=== PATIENT | male | born 1970 | race Caucasian/White ===

== ENCOUNTER → 2016-10-09 | Outpatient (CLI) | payer BC ==
[2016-10-09 07:28] LABS: HEMOGLOBIN 15.9 gm/dl (14.0-17.5); RED BLOOD COUNT 5.91 M/UL (4.20-5.50); WHITE BLOOD COUNT 6.6 K/UL (4.5-11.0)
[2016-10-09 07:39] LABS: BUN/CREATININE RATIO 15 (0-10)
== END ==
LOC: LAB 06:45
PROVIDERS: Family Medicine
DX: Z00.00 Encounter for general adult medical examination without abnormal findings (principal); E29.1 Testicular hypofunction; E78.5 Hyperlipidemia, unspecified; I10 Essential (primary) hypertension
CPT/HCPCS: 36415; 80048; 80061; 80076; 82607; 84402; 84403; 84443; 85025

== ENCOUNTER → 2016-10-22 | Outpatient (CLI) | payer BC ==
[2016-10-22 08:10] LABS: BUN/CREATININE RATIO 18 (0-10)
== END ==
LOC: LAB 07:25
PROVIDERS: Family Medicine
DX: R73.9 Hyperglycemia, unspecified (principal)
CPT/HCPCS: 36415; 80048; 83036

== ENCOUNTER 2020-06-16 08:10 | Day surgery (SDC) | payer OTHER ==
[~2020-06-16] VITALS: Ht 172.7 cm; Wt 142.9 kg
[2020-06-16] MEDS ORDERED: ATORVASTATIN CA10 MG PO (10:46)
[2020-06-16] MEDS ORDERED: AMLODIPINE BESY10 MG PO (10:46)
[2020-06-16] MEDS ORDERED: EFFEXOR XR 75 M75 MG PO (10:48)
[2020-06-16] MEDS ORDERED: OMEPRAZOLE20 MG PO (10:49)
[2020-06-16] MEDS ORDERED: QUINAPRIL-HCTZ1 EAC1 PO (10:50)
[2020-06-16] MEDS ORDERED: GLUCOPHAGE XR500 M1 PO (10:55)
[2020-06-16] MEDS ORDERED: TESTOSTERO200 MG/1 M IM (10:55)
[2020-06-16 11:24] LABS: HEMOGLOBIN 17.3 gm/dl (14.0-17.5); RED BLOOD COUNT 6.16 M/UL (4.20-5.50); WHITE BLOOD COUNT 10.9 K/UL (4.5-11.0)
[2020-06-16 11:49] LABS: BUN/CREATININE RATIO 18 (0-10)
[2020-06-16] MEDS ORDERED: IBUPROFEN200 MG PO ×2 (12:11→12:12)
[2020-06-16] MEDS ORDERED: VITAMIN C500 M4 PO (12:14)
[2020-06-16] MEDS ORDERED: MULTIVITAMINS1 EAC2 PO (12:14)
[2020-06-16] MEDS ORDERED: VITAMIN D3125 MCG PO (12:16)
[2020-06-16] MEDS ORDERED: HYDROCODONE-AC1 EAC1 PO (15:38)
== END 2020-06-16 12:02 | disposition home or self-care (01) ==
LOC: ER1 08:10 → OR 08:10 → CDU 09:57 → ER1 09:57 → EDSTATUS 21:46
PROVIDERS: Emergency Medicine; Orthopaedic Surgery
PROC: 0SSF0ZZ Reposition Right Ankle Joint, Open Approach (ICD-10-PCS; 2020-06-16)
PROC: 0QSJ04Z Reposition Right Fibula with Internal Fixation Device, Open Approach (ICD-10-PCS; principal; 2020-06-16 13:00)
DX: S82.61XA Displaced fracture of lateral malleolus of right fibula, initial encounter for closed fracture (principal); S93.431A Sprain of tibiofibular ligament of right ankle, initial encounter; S82.431A Displaced oblique fracture of shaft of right fibula, initial encounter for closed fracture; S82.51XA Displaced fracture of medial malleolus of right tibia, initial encounter for closed fracture; E78.5 Hyperlipidemia, unspecified; I10 Essential (primary) hypertension; Z20.822 Contact with and (suspected) exposure to COVID-19; W01.0XXA Fall on same level from slipping, tripping and stumbling without subsequent striking against object, initial encounter; X50.1XXA Overexertion from prolonged static or awkward postures, initial encounter; Y92.69 Other specified industrial and construction area as the place of occurrence of the external cause; Y99.0 Civilian activity done for income or pay
CPT/HCPCS: 29515; 36415; 71045; 73590; 73600; 73610; 73630; 76000; 80053; 82962; 85025; 90471; 90715; 93005; 96361; 96374; 96375; 99284; C1713; J0171; J1100; J2270; J2405; J2795; J7030; J7120; U0002

== ENCOUNTER → 2020-12-07 | Outpatient (CLI) | payer SELFPAY ==
[~2020-12-07] MED LIST: AMLODIPINE BESY10 MG PO; ATORVASTATIN CA10 MG PO; EFFEXOR XR 75 M75 MG PO; GLUCOPHAGE XR500 M1 PO; HYDROCODONE-AC1 EAC1 PO; IBUPROFEN200 MG PO; MULTIVITAMINS1 EAC2 PO; OMEPRAZOLE20 MG PO; QUINAPRIL-HCTZ1 EAC1 PO; TESTOSTERO200 MG/1 M IM; VITAMIN C500 M4 PO; VITAMIN D3125 MCG PO
[2020-12-07 10:50] LABS: HEMOGLOBIN 16.6 gm/dl (14.0-17.5); WHITE BLOOD COUNT 7.9 K/UL (4.5-11.0)
[2020-12-07 11:16] LABS: BUN/CREATININE RATIO 14 (0-10)
[2020-12-08 07:11] LABS: VITAMIN D, 25-HYDROXY 62.7 ng/mL (30.0-100.0)
[2020-12-11 15:11] LABS: TESTOSTERONE, SERUM 558 ng/dL (264-916)
== END ==
LOC: LAB 07:46
PROVIDERS: Family Medicine
DX: Z12.5 Encounter for screening for malignant neoplasm of prostate (principal); E11.9 Type 2 diabetes mellitus without complications; E29.1 Testicular hypofunction; E66.01 Morbid (severe) obesity due to excess calories; F32.9 Major depressive disorder, single episode, unspecified; I10 Essential (primary) hypertension; Z68.43 Body mass index [BMI] 50.0-59.9, adult
CPT/HCPCS: 80048; 80061; 80076; 82607; 82652; 83036; 84153; 84402; 84403; 84443; 85025

== ENCOUNTER → 2021-01-31 | Outpatient (CLI) | payer OTHER, BC ==
[~2021-01-31] MED LIST changes: +ST. JOSEPH ASPI81 M1 PO
[2021-01-31 09:59] LABS: BUN/CREATININE RATIO 20 (0-10)
== END ==
LOC: OPSV2 01-30 08:00
PROVIDERS: Orthopaedic Surgery
DX: Z01.818 Encounter for other preprocedural examination (principal); Z96.7 Presence of other bone and tendon implants; I44.5 Left posterior fascicular block; R94.31 Abnormal electrocardiogram [ECG] [EKG]
CPT/HCPCS: 36415; 80048; 93005

== ENCOUNTER → 2021-02-07 | Day surgery (SDC) | payer OTHER ==
[~2021-02-07] VITALS: Ht 172.7 cm; Wt 144.7 kg
[~2021-02-07] MED LIST changes: +HYDROCODON-ACE1 EAC2 PO
== END | disposition home or self-care (01) ==
LOC: OR 06:01
DX: Z47.2 Encounter for removal of internal fixation device (principal); S82.891D Other fracture of right lower leg, subsequent encounter for closed fracture with routine healing; X58.XXXD Exposure to other specified factors, subsequent encounter; I10 Essential (primary) hypertension; E11.9 Type 2 diabetes mellitus without complications; E78.5 Hyperlipidemia, unspecified; K21.9 Gastro-esophageal reflux disease without esophagitis; G47.30 Sleep apnea, unspecified; F32.9 Major depressive disorder, single episode, unspecified; Z99.89 Dependence on other enabling machines and devices; Z79.84 Long term (current) use of oral hypoglycemic drugs; Z79.82 Long term (current) use of aspirin; Z79.1 Long term (current) use of non-steroidal anti-inflammatories (NSAID); Z79.899 Other long term (current) drug therapy
CPT/HCPCS: 73610; 76000; 82962; J0690; J1170; J2001; J2405; J2704; J7030; J7120

== ENCOUNTER 2021-06-14 08:15 | Emergency (ER) | payer OTHER ==
[2021-06-14 09:16] LABS: HEMOGLOBIN 16.1 gm/dl (14.0-17.5); RED BLOOD COUNT 5.86 M/UL (4.20-5.50)
[2021-06-14 09:51] LABS: BUN/CREATININE RATIO 18 (0-10)
== END 2021-06-14 12:40 | disposition home or self-care (01) ==
LOC: ER1 08:15
PROVIDERS: Physician Assistant
DX: R07.89 Other chest pain (principal); Z20.822 Contact with and (suspected) exposure to COVID-19; E78.5 Hyperlipidemia, unspecified; I10 Essential (primary) hypertension; E11.9 Type 2 diabetes mellitus without complications; F41.9 Anxiety disorder, unspecified
CPT/HCPCS: 71045; 80053; 82550; 82553; 83874; 84484; 85025; 93005; 99285; U0002

== ENCOUNTER → 2021-06-22 | Outpatient (CLI) | payer BC | LOC: RAD 16:16 | DX: M79.601 Pain in right arm (principal); M19.011 Primary osteoarthritis, right shoulder; M47.22 Other spondylosis with radiculopathy, cervical region | CPT/HCPCS: 72040; 73030 ==